=== PATIENT | male | born 1950 | race Caucasian/White ===

== ENCOUNTER → 2020-03-03 09:56 | Outpatient (CLI) | payer MEDICARE, BC, SELFPAY ==
[2020-03-05 04:09] LABS: COVID19 Sendout Not Detected (Not Detect)
== END ==
PROVIDERS: Visit Provider Physician Assistant
DX: Z11.59 Encounter for screening for other viral diseases (principal)
CPT/HCPCS: 87635

== ENCOUNTER → 2020-07-22 09:53 | Outpatient (CLI) | payer MEDICARE, BC, SELFPAY ==
[2020-07-22 12:23] LABS: COVID19 -Nasal RAPID Negative (Negative)
== END ==
PROVIDERS: Visit Provider Specialist
DX: Z01.812 Encounter for preprocedural laboratory examination (principal); Z20.828 Contact with and (suspected) exposure to other viral communicable diseases
CPT/HCPCS: 87635; C9803

== ENCOUNTER 2020-07-25 09:50 | Day surgery (SDC) | payer MEDICARE, BC, SELFPAY ==
[2020-07-21 13:43] VITALS: BMI 25.0
[2020-07-25] VITALS (7 sets, daily range): BP systolic 110–132; BP diastolic 60–74; PULSE 49–64; RESP 10–19; TEMP 36.2–36.4; O2SAT 94–98; BMI 24.0
[2020-07-25] MEDS: LACTATED RINGERS 1,000 ML 42 ML IV ×2 (10:26→13:56)
--- NOTE | 2020-07-25 12:10 | PM.PREOP ---
Pre-operative Note COVID-19 COVID-19 status: Negative Result date/Date tested (Pos, Neg/Pending): 07/22/20 Interval Note History & Physical reviewed/Exam performed by Physician: Yes Changes to H&P: No
[2020-07-25] MEDS: CEFAZOLIN 2 GM/100 ML FROZ.PIGGY IV (12:40)
--- NOTE | 2020-07-25 13:02 | SUR.OPER ---
Supine on padded OR bed, head on pillow, arms secured on padded arm boards at <90 degrees abduction, legs uncrossed, safety belt at thigh, tape over blanket over lower legs.
[2020-07-25] MEDS: BUPIVACAINE 0.5% (PF) VIAL 30 ML INJ (13:09)
[2020-07-25] MEDS: OXYCODONE IR 5 MG TABLET PO (14:39)
--- NOTE | 2020-07-25 14:46 | PM.OP.1 ---
Operative Date/Time/Diagnoses Date of procedure: 07/25/20 Time of procedure: 14:20 Pre-op diagnosis: Umbilical hernia and left inguinal hernia. Both are reducible without evidence of incarceration or strangulation. Post-op diagnosis: same Procedure & Clinicians Procedure: Primary repair of umbilical hernia. Repair of left inguinal hernia with plug and patch technique. Same procedure as scheduled: Yes Indications: Symptomatic hernias at the umbilicus and left groin Surgeon: Tucker Morrison Click Yes if Unassisted: Yes Anesthesia Type: General Operative Notes Findings: Direct hernia in the left groin. Small defect at the umbilicus. Closure Type: primary Specimen(s): none sent Prosthetic devices, grafts, tissues, transplants, or devices: Mesh used in the left groin small plug and patch Estimated Blood Loss (mL): 10 Blood products transfused: none Procedure in detail: Patient is placed supine on the operating room table and underwent general LMA anesthesia. He was prepped and draped in the usual fashion. Curvilinear incision was made beneath the umbilicus and carried down level of fascia. The hernia sac was entered and the contents reduced. It consisted of preperitoneal fat. Fascial edge was cleared. This was a very small defect about a cm in size. I closed it with a single interrupted 0 Ethibond suture. The umbilicus was tacked down to the fascia using an interrupted 3-0 Vicryl the subQ was closed with interrupted 3 0 Vicryl and skin was closed with interrupted 4-0 Vicryl subcuticular stitches and Steri-Strips. Attention was turned the left groin. The patient was placed supine on the operating room table and underwent general LMA anesthesia. He was prepped and draped in the usual fashion. A transverse incision was made overlying the left internal ring and carried down to the level of the external oblique. The external oblique was opened parallel with its fibers through the external ring. And nerve in the region had to be sacrificed due to its location and the expectation that mesh would be implanted directly in approximation to it. The cut and was burred and muscle. The cord structures were elevated. The cremaster was opened proximally and search made for an indirect sac. None was found but there was a direct hernia immediately adjacent to the cord structures. The floor was opened and the preperitoneal fat reduced. A small plug was placed in the defect and tacked into place with interrupted Ethibond suture. The floor was closed over this plug.. The floor was examined and was found to be otherwise fairly intact.. A patch was placed across the floor and tacked at the pubic tubercle, the posterior lamella of the anterior rectus sheath, the ilioinguinal ligament, and superior lateral to the cord. The opening was modified as necessary to prevent tight constriction of the cord. Sutures of 0 Ethibond were used to secure the mesh. The external oblique was closed with a running 3 0 Vicryl. The subcu was closed with interrupted 3 0 Vicryl. The skin was closed with a running 4 0 Vicryl subcuticular stitch and Steri-Strips. Dressing was applied, the patient was awakened, and the patient was taken to the recovery area in good condition. Complications: none Post-operative Condition: stable Disposition: PACU Plan for aftercare: Follow-up in the office
== END 2020-07-25 15:17 | disposition home or self-care (01) ==
PROVIDERS: Referring Provider Specialist; Visit Provider Specialist
PROC: (CPT 49505; principal; 2020-07-25 11:15)
DX: K42.9 Umbilical hernia without obstruction or gangrene (principal); K40.90 Unilateral inguinal hernia, without obstruction or gangrene, not specified as recurrent; J45.909 Unspecified asthma, uncomplicated
CPT/HCPCS: 49505; 49585; C1781; J0690; J1100; J1885; J2405; J2704; J3010

== ENCOUNTER → 2020-08-30 08:50 | Outpatient (CLI) | payer MEDICARE, BC, SELFPAY ==
[2020-08-30] MEDS: COVID-19 VACC #1, MRNA(MOD) 100 MCG/0.5 ML VIAL IM (09:01)
== END ==
PROVIDERS: Visit Provider Internal Medicine
DX: Z23 Encounter for immunization (principal)
CPT/HCPCS: 0011A; 91301

== ENCOUNTER → 2020-09-19 09:57 | Outpatient (CLI) | payer MEDICARE, BC, SELFPAY ==
[2020-09-19 11:05] LABS: COVID19 -Nasal RAPID Negative (Negative)
== END ==
PROVIDERS: Visit Provider Specialist
DX: Z20.822 Contact with and (suspected) exposure to COVID-19 (principal)
CPT/HCPCS: 87635; C9803

== ENCOUNTER 2020-09-20 07:54 | Day surgery (SDC) | payer MEDICARE, BC, SELFPAY ==
--- NOTE | 2020-09-20 | PATH_ITS ---
[facility] Accession Number: [id number] . 01 Material submitted: . PART A: colon - 20CM COLON POLYP PART B: colon - CECUM POLYP PART C: 60CM COLON POLYP PART D: colon - 35CM COLON POLYP PART E: colon - 30CM COLON POLYP . 01 Clinical history: . SDC . 02 Diagnosis: A. Colon Polyp At 20 CM, Biopsy: Hyperplastic polyp. . B. Cecal Polyp, Biopsy: Colonic mucosa with no diagnostic abnormality, consistent with polypoid redundancy. Negative for serrated lesion, dysplasia and malignancy. Additional step-sections examined. . C. Colon Polyp At 60 CM, Biopsy: Colonic mucosa with focal mucosal hyperplasia. Negative for dysplasia and malignancy. Additional step-sections examined. . D. Colon Polyp At 35 CM, Biopsy: Tubular adenoma. . E. Colon Polyp At 30 CM, Biopsy: Colonic mucosa with prominent benign lymphoid aggregate. Negative for serrated lesion, dysplasia and malignancy. [facility] 09/23/2020 1137 Local . 02 Electronically signed: . Joel Gutiérrez MD, PhD, Pathologist NPI- [id number] . 01 Gross description: . Part A: 20CM COLON POLYP: Received in formalin are 2 fragment(s) of sol, soft tissue measuring 0.2 x 0.2 x 0.2 cm to 0.5 x 0.3 x 0.2 cm submitted entirely in 1 cassette(s) Part B: CECUM POLYP: Received in formalin are 2 fragment(s) of sol, soft tissue measuring 0.2 x 0.2 x 0.2 cm to 0.3 x 0.3 x 0.2 cm submitted entirely in 1 cassette(s) Part C: 60CM COLON POLYP: Received in formalin are multiple fragment(s) of sol, soft tissue measuring 0.1 x 0.1 x 0.1 cm to 0.3 x 0.3 x 0.2 cm submitted entirely in 1 cassette(s) Part D: 35CM COLON POLYP: Received in formalin is 1 fragment(s) of sol, soft tissue measuring 0.3 x 0.3 x 0.2 cm submitted entirely in 1 cassette(s) Part E: 30CM COLON POLYP: Received in formalin are 3 fragment(s) of sol, soft tissue measuring 0.2 x 0.2 x 0.2 cm to 0.8 x 0.2 x 0.2 cm submitted entirely in 1 cassette(s) /CHARLI 09/21/2020 0037 Local . 02 Pathologist provided ICD-10: D12.6, K63.5 . 02 CPT . 716046, 228537, 876016, [id number], [id number] Performed at: 01 [facility] [address] [place] [address], [place], [place] [id number] MD Ralph Ocampo MD Phone: [phone] Performed at: [address] [facility] [address] [place], [place] [id number] MD Kati Gordon MD Phone: [phone]
[2020-09-20] MEDS: LACTATED RINGERS 1,000 ML 100 ML IV (08:39)
[2020-09-20 08:40] VITALS: BP 122/69; PULSE 55; RESP 16; TEMP 36.5; O2SAT 99; BMI 24.0
--- NOTE | 2020-09-20 09:07 | PM.PREOP ---
Pre-operative Note COVID-19 COVID-19 status: Negative Result date/Date tested (Pos, Neg/Pending): 09/19/20 Interval Note History & Physical reviewed/Exam performed by Physician: Yes Changes to H&P: No ASA Class (for procedural sedation): II
[2020-09-20] MEDS: MIDAZOLAM 5 MG/5 ML VIAL IV (09:52)
[2020-09-20] MEDS: fentaNYL 250 MCG/5 ML INJ IV (09:52)
--- NOTE | 2020-09-20 10:18 | PM.OP.ENDO ---
Operative Date/Time/Diagnoses Date of procedure: 09/20/20 Time of procedure: 10:18 Pre-op diagnosis: Screening exam. Post-op diagnosis: same (Multiple polyps. Colonic diverticulosis. Scarring at the anus with internal hemorrhoids small) Procedure & Clinicians Study performed: Colonoscopy with cold biopsy Same procedure as scheduled: Yes Indications: Screening. Last exam 9 or 10 years ago. He has a history of polyps. Surgeon: Tucker Morrison Procedure Notes SCOAP/Timeout: Performed Procedure in detail: The patient was placed in the left lateral decubitus position and underwent IV sedation directed by the surgeon consisting of fentanyl and Versed. Digital exam was remarkable for a very tight anal verge. No palpable mass. I could feel is prostate well.. The scope was inserted and advanced through the rectum into the sigmoid, descending, transverse, and ascending colon. Diverticulosis was noted and there was a polyp at 20 cm which I biopsied and removed.. The cecum was reached identified by the ileocecal valve and the appendiceal opening. There was a tiny polyp in the cecum which were biopsied and removed. The scope was gradually brought out. Additional Polyps were found at 60 cm from the anal verge 35 cm from the anal verge and 30 cm from the anal verge. These were all small and removed with biopsy forceps.. The scope ultimately was retroflexed in the rectum. The appearance was remarkable for scarring on old hemorrhoidal disease. No active ulceration.. The scope was removed and the patient tolerated the procedure well. Prep was adequate. Scope withdrawal time: 9 minutes(15 total) Sedation minutes: 31 Findings: diverticulosis and polyp (Multiple small polyps) Specimen(s): other (Polyps) Complications: none Post-procedure Recommendations: Colonscopy in 5 years Follow up: as needed Disposition: PACU
[2020-09-20 10:22] VITALS: BP 122/62; PULSE 52; RESP 12; TEMP 37.2; O2SAT 97
[2020-09-20 10:27] VITALS: BP 112/67; PULSE 53; RESP 12; O2SAT 97
[2020-09-20 10:32] VITALS: BP 120/64; PULSE 50; RESP 11; O2SAT 98
[2020-09-20 10:37] VITALS: BP 116/75; PULSE 60; RESP 14; O2SAT 98
[2020-09-20 10:40] VITALS: BP 116/81; PULSE 55; RESP 12; TEMP 37; O2SAT 99
== END 2020-09-20 10:55 | disposition home or self-care (01) ==
PROVIDERS: Referring Provider Specialist; Visit Provider Specialist
PROC: 0DJD8ZZ Inspection of Lower Intestinal Tract, Via Natural or Artificial Opening Endoscopic (ICD-10-PCS; CPT 45378; principal; 2020-09-20 09:15)
DX: Z12.11 Encounter for screening for malignant neoplasm of colon (principal); Z86.010 Personal history of colon polyps; J45.909 Unspecified asthma, uncomplicated; E78.5 Hyperlipidemia, unspecified; K57.30 Diverticulosis of large intestine without perforation or abscess without bleeding; K64.8 Other hemorrhoids; D12.6 Benign neoplasm of colon, unspecified
CPT/HCPCS: 45380; 99152; 99153; J2250; J3010

== ENCOUNTER → 2020-09-27 08:58 | Outpatient (CLI) | payer MEDICARE, BC, SELFPAY ==
[2020-09-27] MEDS: COVID-19 VACC #2, MRNA(MOD) 100 MCG/0.5 ML VIAL IM (09:01)
== END ==
PROVIDERS: Visit Provider Internal Medicine
DX: Z23 Encounter for immunization (principal)
CPT/HCPCS: 0012A; 91301

== ENCOUNTER → 2020-12-01 11:24 | Outpatient (CLI) | payer MEDICARE, BC, SELFPAY ==
[2020-12-01 11:58] LABS: Add Manual Diff / Slide Review NO; Basophils Absolute Auto 100 /uL (0-100); Basophils Percent Auto 1.3 % (0-2); Eosinophils Absolute Auto 200 /uL (0-450); Eosinophils Percent Auto 3.1 % (2-4); Hematocrit 39.1 % (41-53); Hemoglobin 13.6 g/dL (13.5-17.5); Lymphocytes Absolute Auto 2300 /uL (1100-4500); Lymphocytes Percent Auto 41.9 % (25-40); Mean Corpuscular HGB Conc 34.8 % (30-36); Mean Corpuscular Hemoglobin 32.1 PG (26-34); Mean Corpuscular Volume 92.4 fL (80-100); Monocytes Absolute Auto 400 /uL (0-900); Monocytes Percent Auto 7.7 % (3-14); Neutrophils Absolute Auto 2500 /uL (1500-7000); Platelet Count 189 X10^3/uL (150-400); Red Blood Cell Count 4.23 X10^6/uL (4.5-5.9); Red Cell Distribution Width 12.9 % (11.6-14.8); White Blood Cell Count 5.4 X10^3/uL (4.5-11.0)
[2020-12-01 13:43] LABS: BUN Creatinine Ratio 22.1 (6-22); Blood Urea Nitrogen 17 mg/dL (9-20); Calcium 9.4 mg/dL (8.4-10.2); Carbon Dioxide 27 mmol/L (22-32); Chloride 103 mmol/L (98-107); Estimated Glomerular Filt Rate > 60.0 mL/min (>60); Glucose 94 mg/dL (80-110); HEMOLYSIS < 15 (0-50); Potassium 3.9 mmol/L (3.4-5.1); Sodium 136 mmol/L (137-145)
== END ==
PROVIDERS: Referring Provider Orthopaedic Surgery Adult Reconstructive Orthopaedic Surgery; Visit Provider Orthopaedic Surgery Adult Reconstructive Orthopaedic Surgery
DX: Z01.818 Encounter for other preprocedural examination (principal); R73.9 Hyperglycemia, unspecified; Z01.812 Encounter for preprocedural laboratory examination; R22.2 Localized swelling, mass and lump, trunk
CPT/HCPCS: 21933; 36415; 80048; 83036; 85025; 93005

== ENCOUNTER → 2021-01-16 10:07 | Outpatient (CLI) | payer MEDICARE, BC, SELFPAY ==
[2021-01-16 12:01] LABS: COVID19 -Nasal RAPID Negative (Negative)
== END ==
PROVIDERS: PCP Family Medicine; Visit Provider Physician Assistant
DX: Z01.812 Encounter for preprocedural laboratory examination (principal); Z20.822 Contact with and (suspected) exposure to COVID-19
CPT/HCPCS: 87635

== ENCOUNTER → 2021-01-16 13:13 | Outpatient (CLI) | payer MEDICARE, BC, SELFPAY ==
--- NOTE | 2021-01-20 13:15 | PM.PFT.1 ---
Pulmonary Function Test Referral & Results Date Patient Seen: 01/16/21 Requesting provider: Josh Espinosa Results: The spirometry demonstrates an FVC of 4.48 L which is 111% of predicted. The FEV1 was measured at 2.40 L which is 82% of predicted. The FEV1/FVC ratio was 54 which is 73% of predicted. Following the administration of bronchodilator there was a 19% improvement in FEV1 and a 65% improvement in FEF 25-75%. Lung volumes show an SVC of 4.88 L which is 115% of predicted. The diffusing capacity was measured at 28.82 which is 97% of predicted. The maximum voluntary ventilation was minimally reduced Interpretation: This study demonstrates perhaps mild obstructive lung disease based on slight reduction FEV1 and FEV1/FVC ratio. There is evidence of benefit following bronchodilator as noted above in both FEV1 and FEF 25-75% Lung volumes are normal Diffusing capacity is normal Clinical correlation suggested
== END ==
PROVIDERS: PCP Family Medicine; Referring Provider Family Medicine; Visit Provider Family Medicine
DX: J45.40 Moderate persistent asthma, uncomplicated (principal); Z87.891 Personal history of nicotine dependence; Z01.812 Encounter for preprocedural laboratory examination; Z20.822 Contact with and (suspected) exposure to COVID-19
CPT/HCPCS: 87635; 94060; 94726; 94729; C9803

== ENCOUNTER 2021-01-18 07:35 | Day surgery (SDC) | payer MEDICARE, BC, SELFPAY ==
[2021-01-12 09:58] VITALS: BMI 26.2
[2021-01-18] VITALS (11 sets, daily range): BP systolic 103–135; BP diastolic 61–79; PULSE 48–59; RESP 13–20; TEMP 36.1–36.9; O2SAT 94–99; BMI 24.8; BMI 25.2
--- NOTE | 2021-01-18 07:00 | DI.RAD.S_ITS ---
PROCEDURE: XR KNEE LT 1TO2V INDICATIONS: left TKA TECHNIQUE: 2 view(s) of the knee acquired. [facility] [place], XR KNEE 4+ VIEWS LEFT, 11/07/2020, 15:57. FINDINGS: Bones: Patient is status post knee joint arthroplasty. Hardware components are in expected positions. Visualized bony structures are intact. Soft tissues: Overlying postoperative changes are noted. IMPRESSION: Expected appearance of the left knee total arthroplasty. Dictated by: Shaun Fernández M.D. on 01/18/2021 at 11:24 Approved by: Shaun Fernández M.D. on 01/18/2021 at 11:25
[2021-01-18] MEDS: LACTATED RINGERS 1,000 ML 42 ML IV ×2 (08:19→10:21)
[2021-01-18] MEDS: PREGABALIN 75 MG CAPSULE PO (08:26)
[2021-01-18] MEDS: CELECOXIB 200 MG CAPSULE PO (08:26)
[2021-01-18] MEDS: ACETAMINOPHEN 325 MG TABLET 975 MG PO (08:26)
--- NOTE | 2021-01-18 08:38 | PM.PREOP ---
Pre-operative Note COVID-19 COVID-19 status: Negative Result date/Date tested (Pos, Neg/Pending): 01/16/21 Interval Note History & Physical reviewed/Exam performed by Physician: Yes Changes to H&P: No H&P completed within 30 days and has changed as indicated here:: Plan for L TKA
[2021-01-18] MEDS: CEFAZOLIN 1 GM VIAL 2 GM IV ×2 (08:55→17:07)
[2021-01-18] MEDS: TRANEXAMIC ACID 1,000 MG VIAL 2000 MG INJ ×2 (09:05→10:44)
--- NOTE | 2021-01-18 09:14 | SUR.OPER ---
Supine on padded OR bed. Pillow under head, arms secured on padded armboards <90 degree abduction. Safety belt across torso. Non-operative leg secured with tape over blanket over lower leg. Operative leg under control of surgeon. Foam padded brace at thigh of operative leg.
[2021-01-18] MEDS: SODIUM CHLORIDE IRRIG SOLUTION 250 ML, POVIDONE-IODINE SPONGE STICKS 1 APPLIC IRR (09:20)
[2021-01-18] MEDS: ROPIVACAINE 0.5% PF 5 MG/ML 20ML VIAL 60 ML INJ (09:21)
[2021-01-18] MEDS: MORPHINE 4 MG/ML INJ INJ (09:21)
[2021-01-18] MEDS: KETOROLAC 30 MG/ML VIAL IV (09:22)
--- NOTE | 2021-01-18 10:50 | PM.OP.1 ---
Operative Date/Time/Diagnoses Date of procedure: 01/18/21 Time of procedure: 10:50 Pre-op diagnosis: left knee OA Post-op diagnosis: same Procedure & Clinicians Procedure: Left total knee arthroplasty Same procedure as scheduled: Yes Indications: Left knee osteoarthritis resistant to further conservative measures. Surgeon: Elvin Shipley [employer] Extension Worker: Jeremy Knowles Click Yes if Unassisted: Yes Anesthesia Type: General and Spinal Operative Notes Findings: Hemosiderin staining of the synovium. Advanced osteoarthritis seen throughout the knee. Gmmp-gt-gdod articulation. Closure Type: primary Specimen(s): none sent Prosthetic devices, grafts, tissues, transplants, or devices: Guzmán and nephew Journey 2 CR size 6, left CR femur Journey size 6, left tibial base plate Size 5-6 left 9 mm journey 2 deep dish polyethylene 35 mm oval Dominique 2 patellar Estimated Blood Loss (mL): 50 Tourniquet time (min): 52 Procedure in detail: Patient was met in the preoperative holding area where the site and side of surgery were marked by MD informed consent had been reviewed signed in clinic was also reviewed the preoperative holding area all last minute questions were answered. Patient was then brought back in the operating room where he received a spinal anesthetic. He was then transferred on the operating table. He was placed supine induced under general anesthesia. A nonsterile tourniquet was then placed on the left thigh and the left lower extremity then prepped and draped in normal sterile fashion. A surgical time-out was performed verifying site and side of surgery as well as the name of the patient. An Esmarch was used to exsanguinate the left lower extremity and the tourniquet was inflated 250 mmHg. A longitudinal incision over the anterior aspect the knee was made with a 10. Blade and a 10. Blade was then used to elevate medial lateral flaps. The medial parapatellar arthrotomy was then marked and a new 10. Blade was then used to make this arthrotomy. Hoffa's fat pad was then removed and medial peel was then performed. Next the lateral meniscus was removed and Que's line was marked as well as entry site for the femoral drill and the tibial drill respectively. The remnant of the ACL was also removed. Drill was then used to enter the femur and tibia sequentially. Intramedullary padmini was then placed inside the femur and the distal femoral cutting jig was then placed and cut in through the neutral slot. Intramedullary padmini was then removed from the femur placed inside the tibia and the out rn examiner was then used to pin the tibial jig in appropriate alignment. Drop arc was used to confirm alignment. Tibial cut was then made and the medial meniscus was removed with the tibial cut. PCL was preserved. This point the knee was brought into full extension a 9 mm extension block fit the extension space well and was balance medial and lateral. The knee was then brought into flexion the pins were then removed and the gap flame cutting supervisor was placed. This was then drilled for the cutting block. These drill holes were compared to [place] line which showed external rotation. The Sizer was then sized to size 6. This was then pinned into place and the 5 in 1 cutting block cuts were then made sequentially. Cutting block was then removed bony fragments were then removed from the knee as well. A size 6 CR femur was then malleted into place and the cut for the CR femur the was then made. The gait was then placed a size 6 tibial base plate with a 9 mm thick CR was then placed in the knee was brought through range of motion. Excellent tracking and stability. Tibial base plate was then marked using floating technique. The knee was then brought into partial flexion and the patella was then cut using freehand technique sized to size 35 mm patellar button and drilled. A 35 mm trial button was then placed the knee was brought through range of motion with excellent patellar tracking. The trial components were then removed the tibial base plate was then returned to the tibia and pinned into place and the keel was then drilled and punched. Bone fractures then placed inside the tibial canal and punched again. Local anesthetic was infiltrated in the posterior aspect of the knee as well as the periarticular soft tissues. Pulse lavage was then used to clean the cut surface of the tibia femur and patella. The surfaces were then dried. Cement was mixed cement was then finger packed into the keel hole as well as the cut surface of the tibia and undersurface of the tibial base plate this was then malleted into place excess cement was removed. Cement was then finger packed on the cut surface of the femur with exception the posterior condylar cut was plate cement was placed on the feet of the femoral component this was then malleted into place excess cement was removed the was then brought into full extension with a 9 mm thick CR trial the ankle was held internal rotation. Cement was then packed on the cut surface of the patella and between pegs on the patellar button and the patellar button was then clamped into place excess cement was removed and cement was then removed. Betadine solution was then placed into the wound and the tourniquet was let down at 52 minutes minutes of time. Stem was allowed to fully cure. Betadine solution was then lavaged with copious normal saline. Knee was brought through range of motion again and a 9 mm thick deep dish polyethylene was selected. The trial component was then removed look for any excess cement none were was found. A 9 mm thick deep dish polyethylene was then placed into the locking mechanism the tibial base plate and confirmed the medial lateral tabs were well gauge. The knee was then brought into extension and a medial parapatellar arthrotomy was closed using 1. Vicryl in interrupted fashion followed by running Quill suture followed by 2 Vicryl interrupted fashion the subcutaneous layer followed by running 3-0 Stratafix followed by Dermabond and Aquacel dressing. Complications: none Post-operative Condition: stable Disposition: PACU Plan for aftercare: 24 hours post-op abx, ASA 81mg BID for 6 weeks for DVT prophyalxis, WBAT LLE
[2021-01-18] MEDS: LACTATED RINGERS 1,000 ML 100 ML IV ×2 (13:37→22:25)
[2021-01-18] MEDS: IBUPROFEN 400 MG TABLET PO ×3 (13:42→20:51)
[2021-01-18] MEDS: ACETAMINOPHEN 325 MG TABLET 650 MG PO ×2 (14:45→20:49)
--- NOTE | 2021-01-18 14:50 | PT.IIE ---
Current Diagnoses Unilateral primary osteoarthritis, left knee (01/18/21) Surgery Performed Operation Date: 01/18/21 08:45 Actual Procedures p Total Knee Arthroplasty(Left) - Elivn Shipley MD Surgical History (Last Updated 01/12/21 @ 10:10 by Ronit Mendez RN) H/O repair of rotator cuff History of colonoscopy with polypectomy History of surgery (11/2020) History of vasectomy Hx of hernia repair (07/2020) Hx of knee surgery Hx of tonsillectomy Medical History (Last Updated 01/12/21 @ 10:13 by Ronit Mendez RN) Asthma Diverticulosis Easy bruisability HLD (hyperlipidemia) Impaired hearing Osteoarthritis Psoriasis Physical Therapy Inpatient Evaluation/Re-Eval M1 PT/OT-IP Prior Functional Status Start: 01/18/21 16:48 Freq: NEEDED Status: Active Protocol: Document 01/18/21 14:50 AB (Rec: 01/18/21 17:00 AB [id number]) Medical Review Prior Functional Status Medical History Reviewed Yes Communication able to make needs known Mobility and Gait pt stated that he is independent with all mobilities and ambulation without AD Social History Household Members spouse Living Arrangements House Number of Floors (Floors) One Floor Number of Stairs To Enter/Railing? 3 steps without AD Home Environment High Toilet,Walk in Shower Home Equipment Front Wheel Walker,Hand Held Shower M2 PT-IP Current Condition Start: 01/18/21 16:48 Freq: NEEDED Status: Active Protocol: Document 01/18/21 14:50 AB (Rec: 01/18/21 17:00 AB [id number]) Physical Therapy Current Condition Current Condition Evaluation Date 01/18/21 Treatment Diagnosis s/p L TKA; difficulty in walking Onset Date 01/18/21 Weight Bearing Status Weight Bearing Status Weight Bear as Tolerated Allowed Weight Bearing Amount (enter % LLE WBAT or #) (%) M3 PT-IP Subjective Start: 01/18/21 16:48 Freq: NEEDED Status: Active Protocol: Document 01/18/21 14:50 AB (Rec: 01/18/21 17:00 AB [id number]) Subjective Physical Therapy Visit Type Type Initial Evaluation Visit Start Time 14:50 Visit Stop Time 15:35 Total Visit Minutes 45 Number of TRUSS BUILDER Visits 0 Physical Therapy Visit Comments Patient Comments pt is agreeable to do PT Therapy Pain Assessment Pain Present Pain Present Denied Pain M4 PT-IP Mobility and Gait Start: 01/18/21 16:48 Freq: NEEDED Status: Active Protocol: Document 01/18/21 14:50 AB (Rec: 01/18/21 17:00 AB [id number]) PT-Bed Mobility Assessment Supine to Sit Supine to Sit Standby Assistance PT-Transfer Assessment Sit to and From Stand Sit to and from Stand Minimal Assistance,1 Person Assistance,Use of Upper Extremities Equipment Transfer Assistive Device Gait Belt,Front Wheeled Walker Orthotic/Prosthetic Devices or Brace: No Transfers Transfer Destination Chair Transfer Technique ambulated using FWW Transfer Ability Level of Assist Minimal Assistance,1 Person Assistance,Use of Upper Extremities Comments Mobility Comments completed heel slides prior to mobility. BP in supine: 127/ 71. pt agreed to get up but stated that his buttocks are still numb and RLE is slightly numb but able to move LE without difficulty. completed sit to supine SBA. pt was able to sit on EOB SBA. c/o initial dizziness but dissipated. BP: 125/74. pt completed sit to stand min A. ambulated in room using FWW min A and cues for safety. presents with unsteady gait but without LOB. pt agreed to sit on the chair. positioned on the chair. call light and table placed within reach. Gait Assessment Gait Gait Assistance Required: Minimum Assistance Distance (Feet) 12 Able to Maintain Weight Bearing Status Yes During Gait Assistive Devices Assistive Device Gait Belt,Front Wheeled Walker Orthotic/Prosthetic Devices or Brace: No Gait Deviations General Gait Pattern Antalgic,Decreased Stride Length,Decreased Feet Clearance Factors Limiting Gait Function Factors Limiting Gait Function Decreased Activity Tolerance, Decreased Sensation,Decreased Strength,Limited Range of Motion,Pain,Poor Balance, Respiratory Distress PT-Balance Assessment Sitting Balance and Reactions Static Sitting Balance Ability Good Dynamic Sitting Balance Ability Good Standing Balance and Reactions Static Standing Balance Ability Fair Dynamic Standing Balance Ability Fair Device Used FWW M5 PT-IP Objective Assessments Start: 01/18/21 16:48 Freq: NEEDED Status: Active Protocol: Document 01/18/21 14:50 AB (Rec: 01/18/21 17:00 AB [id number]) Orientation Orientation/Cognition Level of Alertness Alert Orientation Name,Age,Birthday,Month,Date, Year,Day of Week,Place, Situation Language Function Ability No Deficits Noted Safety Awareness Understands Safety Issues Memory Description No Deficits Noted Gross Range of Motion Lower Extremity ROM Assessment Within Functional Limits Impairments L knee flexion: ~100 deg L knee extension: ~ 5-10 deg less to 0 Strength Lower Extremity Strength Assessment Left Impaired Hip 4+/5 Knee 4-/5 Sensation Assessment Sensation Gross Sensation Right LE Impaired Sensation Description Numbness Comments Sensation Comments also c/o bilateral buttocks numbness Muscle Tone Muscle Tone WNL Yes M6 PT-IP Treatment Start: 01/18/21 16:48 Freq: NEEDED Status: Active Protocol: Document 01/18/21 14:50 AB (Rec: 01/18/21 17:00 AB [id number]) Physical Therapy Treatment Exercises Exercises Heel Slides Education Education Provided Precautions,Weight Bearing Status,Post-Op Packet,Safety Other Treatments Other Treatment Performed reviewed HEP with pt M7 PT-IP Assessment and Plan Start: 01/18/21 16:48 Freq: NEEDED Status: Active Protocol: Document 01/18/21 14:50 AB (Rec: 01/18/21 17:00 AB [id number]) PT Summary Assessment and Plan Potential Rehabilitation Potential Good Status of Condition at Evaluation Evolving Summary Impairments Pain,ROM,Strength,Balance, Coordination,Sensation,Tone, Bed Mobility,Transfers,Gait, Activity Tolerance Assessment Summary pt requiring min A with mobility but just had L TKA this morning and will likely improve during hospital stay. caregiver training set up for tomorrow at 10 am. will also conduct stair climbing training prior to d/c. Goals Bed Mobility Goal Independent Transfer Goal Independent,Front Wheeled Walker Gait Goal Independent,Front Wheel Walker Gait Distance 200 Other Goals up/down 3 steps without rails/ use of SPC/VERMIN EXTERMINATOR CGA Days to Meet Goals 3 Frequency of Treatment Frequency Of Treatment Twice a Day Treatment Plan Physical Therapy Treatment Plan Bed Mobility Training,Transfer Training,Gait Training, Therapeutic Exercise,Balance Retraining,Post Op Education, Discharge Planning,Hot or Cold Pack,Neuromuscular Re-ed, Coordination Retraining,Manual Therapy Precautions Other Precautions LLE: WBAT Recommendations To Nursing Amount of Assist Needed 1 Person Assist Discharge Recommendations PT Discharge Recommendations Home with Assistance, Outpatient PT Transportation Needs at Discharge Private Vehicle
[2021-01-18] MEDS: ASPIRIN EC 81 MG TABLET PO (20:48)
[2021-01-18] MEDS: ATORVASTATIN 20 MG TABLET 10 MG PO (20:49)
[2021-01-18] MEDS: DOCUSATE 100 MG CAPSULE PO (20:49)
--- NOTE | 2021-01-18 23:42 | PC.NURSE ---
pt was unable to urinate, bladder scan 895cc. inserted in and out cath, but felt resistance. removed the cath, pt able to void afterwards. [id number]. pain controlled with sched tyenol and advil.
[2021-01-18] MEDS: OXYCODONE IR 10 MG TABLET PO (23:47)
[2021-01-19] MEDS: IBUPROFEN 400 MG TABLET PO ×3 (01:01→09:34)
[2021-01-19] MEDS: CEFAZOLIN 1 GM VIAL 2 GM IV (01:02)
[2021-01-19 05:20] VITALS: BP 124/71; PULSE 58; RESP 18; TEMP 37.1; O2SAT 97
[2021-01-19] MEDS: OXYCODONE IR 5 MG TABLET PO (05:20)
[2021-01-19 05:47] LABS: Hematocrit 34.3 % (41-53)
[2021-01-19] MEDS: OXYCODONE/ACETAMINOPHEN 5/325 TABLET 1 TAB PO (07:03)
[2021-01-19 08:10] VITALS: BP 129/68; PULSE 59; RESP 16; TEMP 36.8; O2SAT 99
--- NOTE | 2021-01-19 08:48 | PM.DS.1 ---
History of Present Illness History of Present Illness Date Patient Seen: 01/19/21 Time Patient Seen: 08:48 Chief complaint: Left Total Knee Arthroplasty Narrative: Pain [id number]. Denies fever or chills. No nausea or vomiting. Patient has is home and available to assist him. Discharge Providers Provider Discharge Date: 01/19/21 Primary care physician: Josh Espinosa MD Consults: 01/18/21 07:00 Consult to Anesthesiology Routine Comment: Consulting Provider: Anesthesiologist Reason for consultation: Regional block for post operative pain control 01/18/21 11:45 Consult to Discharge Planning Routine Comment: Consult to Physical Therapy Evaluate & Treat Comment: Physician Instructions: postop TKA protocol Consult to Respiratory Therapy Evaluate & Treat Comment: Physician Instructions: Evaluate and treat Discharge provider: Stephan Mcfadden PA-C Summary Hospital Course Discharge Diagnosis: left knee OA Hospital Course: Left total knee arthroplasty Same procedure as scheduled: Yes Indications: Left knee osteoarthritis resistant to further conservative measures. Surgeon: Elvin Shipley Supervisor Air Conditioning Installer: Jeremy Knowles Click Yes if Unassisted: Yes Anesthesia Type: General and Spinal Operative Notes Findings: Hemosiderin staining of the synovium. Advanced osteoarthritis seen throughout the knee. Jysx-eh-ssmn articulation. Closure Type: primary Specimen(s): none sent Prosthetic devices, grafts, tissues, transplants, or devices: Guzmán and nephew Journey 2 CR size 6, left CR femur Journey size 6, left tibial base plate Size 5-6 left 9 mm journey 2 deep dish polyethylene 35 mm oval Dominique 2 patellar Estimated Blood Loss (mL): 50 Tourniquet time (min): 52 Patient admitted to the hospital for left total knee arthroplasty. Patient consented to the same. Patient taken operating room yesterday. Patient back in his room recovering well as in stable condition. Patient will be discharged home today after physical therapy. Status at Discharge Cognitive/behavioral status at discharge: at baseline, oriented Functional status at discharge: uses cane/walker Overall status at discharge: patient is progressing back to baseline Time Spent with Patient Time spent: Less than 30 minutes Exam Vital Signs (past 8 hours): - 01/19/21 05:20 Temperature 98.8 F Pulse Rate 58 L Respiratory Rate 18 Blood Pressure 124/71 Pulse Oximetry 97 Oxygen Delivery Method Room Air Oxygen Flow Rate 0 Narrative Exam Narrative: 70-year-old male resting comfortably in bed in no apparent distress. Left knee dressing is Clean, dry, intact.. Motor functions intact distal bilateral lower extremities. Sensation grossly intact distal bilateral lower extremities. Objective Labs Result Diagrams: 01/19/21 05:22 Labs: Laboratory Results - last 24 hr 01/19/21 05:22 Hgb 12.0 L Hct 34.3 L COUNT INCLUDES THE [facility] Medical History Asthma Diverticulosis Easy bruisability HLD (hyperlipidemia) Impaired hearing Osteoarthritis Psoriasis Surgical History H/O repair of rotator cuff History of colonoscopy with polypectomy History of surgery (11/2020) History of vasectomy Hx of hernia repair (07/2020) Hx of knee surgery Hx of tonsillectomy Family History Mother Stroke Social History marital status: household members: spouse occupational status: previously employed Smoking Status: Former smoker alcohol intake: current substance use type: does not use Discharge Assessment & Plan Assessment and Plan Assessment: Patient progressing as expected status post left total knee arthroplasty. Plan of Treatment: Discharge home today in stable condition. Discharge Plan Discharge Plan Patient Disposition: Home Discharge orders & Medications Discharge Orders: Discharge (Order); Ordered 01/19/21 Ordered By: Stephan Mcfadden Prescriptions: New acetaminophen 325 mg Tablet 650 mg PO TID Qty: 60 RF: 0 aspirin 81 mg Tablet,Delayed Release (Dr/Ec) 81 mg PO BID Qty: 60 RF: 0 ibuprofen 400 mg Tablet 400 mg PO Q4HR Qty: 60 RF: 0 docusate sodium [DOK] 100 mg Capsule 100 mg PO BID Qty: 20 RF: 0 oxycodone 5 mg Tablet 5 mg PO Q3HR PRN (Reason: Pain, Moderate (4-6)) Qty: 40 RF: 0 Continued Humira 40 MG/0.8 ML syringe kit 40 mg SQ SEEINSTR Qty: 0 RF: 0 finasteride [Propecia] 1 MG tablet 1 mg PO QDAY Qty: 0 RF: 0 atorvastatin 10 mg tablet 10 mg PO DAILY RF: 0 albuterol 90 mcg/actuation Aerosol 180 mcg INHALATION PRN PRN (Reason: Exercise induced asthma) RF: 0 Discontinued naproxen sodium 220 mg Tablet 220 mg PO Q12H PRN (Reason: Pain (Scale Score 1-3)) RF: 0 ibuprofen 600 mg Tablet 600 mg PO Q8H PRN (Reason: Pain (Scale Score 1-3)) RF: 0 Follow up/Referrals: Josh Espinosa MD [Primary Care Provider] - Elvin Shipley MD [Physician] - (2 weeks) Diet/Activity/Treatments Diet: Diet as Tolerated Activity: Weight-bearing as tolerated Cold/Heat Therapy: Apply ice as needed Skin/Wound/Dressing Care Report to your healthcare provider any signs of infection, such as:: chills, fever, increased pain, unusual drainage and unusual redness Dressing: Keep clean and dry Visit Report/Discharge Packet Instructions: DI for Knee Replacement Stand Alone Forms: Surgery Discharge Discharge Data Primary Care Provider: Josh Espinosa Attending Provider: Elvin Shipley Quality VTE Deep Vein Thrombosis/Pulmonary Embolism Present on Admission: No
[2021-01-19] MEDS: DOCUSATE 100 MG CAPSULE PO (09:34)
[2021-01-19] MEDS: ACETAMINOPHEN 325 MG TABLET 650 MG PO (09:34)
[2021-01-19] MEDS: ASPIRIN EC 81 MG TABLET PO (09:34)
--- NOTE | 2021-01-19 09:39 | PC.NURSE ---
Assess- Patient is alert and oriented x3. He has care companion training with physical therapy around 0945. Aquacel dressing to l.knee is cdi, cms wnl and ppx2. Patient is going to be discharged around 1045 to catch a ferry to [facility]. Pain medication is due for patient around 1030, will give prior to discharging.
--- NOTE | 2021-01-19 10:07 | PT.IPTN ---
Current Diagnoses Unilateral primary osteoarthritis, left knee (01/18/21) Surgery Performed Operation Date: 01/18/21 08:45 Actual Procedures p Total Knee Arthroplasty(Left) - Elvin Shipley MD Physical Therapy Treatment Note M2 PT-IP Current Condition Start: 01/18/21 16:48 Freq: NEEDED Status: Active Protocol: Document 01/18/21 14:50 AB (Rec: 01/18/21 17:00 AB [id number]) Physical Therapy Current Condition Current Condition Evaluation Date 01/18/21 Treatment Diagnosis s/p L TKA; difficulty in walking Onset Date 01/18/21 Weight Bearing Status Weight Bearing Status Weight Bear as Tolerated Allowed Weight Bearing Amount (enter % LLE WBAT or #) (%) M3 PT-IP Subjective Start: 01/18/21 16:48 Freq: NEEDED Status: Active Protocol: Document 01/19/21 09:44 CLB (Rec: 01/19/21 10:29 CLB [id number]) Subjective Physical Therapy Visit Type Type Treatment Note Visit Start Time 09:44 Visit Stop Time 10:07 Total Visit Minutes 23 Notes Pt's Tabitha present for CG training. Number of PROSTHETICS TECHNICIAN Visits 1 Physical Therapy Visit Comments Patient Comments pt is agreeable to do PT eager to d/c to make [address] [facility]. Therapy Pain Assessment Pain Present Pain Present Pain Reported M4 PT-IP Mobility and Gait Start: 01/18/21 16:48 Freq: NEEDED Status: Active Protocol: Document 01/19/21 09:44 CLB (Rec: 01/19/21 10:29 CLB [id number]) PT-Bed Mobility Assessment Sit to Supine Sit to Supine Standby Assistance PT-Transfer Assessment Sit to and From Stand Sit to and from Stand Standby Assistance,1 Person Assistance,Use of Upper Extremities Equipment Transfer Assistive Device Gait Belt,Front Wheeled Walker Orthotic/Prosthetic Devices or Brace: No Transfers Transfer Destination Chair Transfer Technique ambulated using FWW Transfer Ability Level of Assist Standby Assistance,1 Person Assistance,Use of Upper Extremities Comments Mobility Comments Pt in chair performing HS. Pt then ambulated in vieira to therapy stairs ~200ft w/FWW/ SBA with WC follow. Pt able to ambulate with step thru gait pattern with heel/toe, good stride length and foot clearance. Pt climbed stairs with SPC and CGA provided by . Pt sat in WC SBA and returned to room where he transferred from to bed in supine with SBA. Pt left in bed with all needs within reach. Gait Assessment Gait Gait Assistance Required: Standby Assistance,1 Person Assist Distance (Feet) 200 Able to Maintain Weight Bearing Status Yes During Gait Assistive Devices Assistive Device Gait Belt,Front Wheeled Walker Gait Deviations General Gait Pattern Antalgic Factors Limiting Gait Function Factors Limiting Gait Function Decreased Activity Tolerance, Decreased Sensation,Decreased Strength,Limited Range of Motion,Pain,Poor Balance Comments Gait Comments please see mobility comments Stair Climbing Assessment Evaluation Level of Assist On Stairs Contact Guard Assistance,1 Person Assistance Devices Stair Climbing Assistive Devices Straight Cane Technique/Endurance Stair Climbing Direction Ascend and Descend Stair Climbing Technique Step to Step Number of Steps Climbed 3 Stair Climbing Set # Repetitions (reps) 1 Comments Stair Climbing Comments Pt able to climb stairs with SPC and CGA provided by . M5 PT-IP Objective Assessments Start: 01/18/21 16:48 Freq: NEEDED Status: Active Protocol: Document 01/18/21 14:50 AB (Rec: 01/18/21 17:00 AB [id number]) Orientation Orientation/Cognition Level of Alertness Alert Orientation Name,Age,Birthday,Month,Date, Year,Day of Week,Place, Situation Language Function Ability No Deficits Noted Safety Awareness Understands Safety Issues Memory Description No Deficits Noted Gross Range of Motion Lower Extremity ROM Assessment Within Functional Limits Impairments L knee flexion: ~100 deg L knee extension: ~ 5-10 deg less to 0 Strength Lower Extremity Strength Assessment Left Impaired Hip 4+/5 Knee 4-/5 Sensation Assessment Sensation Gross Sensation Right LE Impaired Sensation Description Numbness Comments Sensation Comments also c/o bilateral buttocks numbness Muscle Tone Muscle Tone WNL Yes M6 PT-IP Treatment Start: 01/18/21 16:48 Freq: NEEDED Status: Active Protocol: Document 01/19/21 09:44 CLB (Rec: 01/19/21 10:29 CLB [id number]) Physical Therapy Treatment Exercises Exercises Heel Slides Education Education Provided Precautions,Weight Bearing Status,Post-Op Packet,Safety Other Treatments Other Treatment Performed reviewed HEP with pt M7 PT-IP Assessment and Plan Start: 01/18/21 16:48 Freq: NEEDED Status: Active Protocol: Document 01/19/21 09:44 CLB (Rec: 01/19/21 10:29 CLB [id number]) PT Summary Assessment and Plan Potential Rehabilitation Potential Good Status of Condition at Evaluation Evolving Summary Impairments Pain,ROM,Strength,Balance, Coordination,Sensation,Tone, Bed Mobility,Transfers,Gait, Activity Tolerance Progress Towards Goals Progressing Toward Goals Assessment Summary Pt is SBA for all mobility and CGA for stair climbing with assist. Pt able to increase gait distance to ~ 200ft and improve stability/ quality during gait andPt present for CG training and will be able to assist pt with all needs at home. Pt has OP PT scheduled for next week. Goals Bed Mobility Goal Independent Transfer Goal Independent,Front Wheeled Walker Gait Goal Independent,Front Wheel Walker Gait Distance 200 Other Goals up/down 3 steps without rails/ use of SPC/HUMAN RESOURCES GENERALIST CGA Days to Meet Goals 3 Frequency of Treatment Frequency Of Treatment Twice a Day Treatment Plan Physical Therapy Treatment Plan Bed Mobility Training,Transfer Training,Gait Training, Therapeutic Exercise,Balance Retraining,Post Op Education, Discharge Planning,Hot or Cold Pack,Neuromuscular Re-ed, Coordination Retraining,Manual Therapy Precautions Other Precautions LLE: WBAT Recommendations To Nursing Amount of Assist Needed 1 Person Assist Discharge Recommendations PT Discharge Recommendations Home with Assistance, Outpatient PT Transportation Needs at Discharge Private Vehicle
--- NOTE | 2021-01-19 12:44 | CM.DANOTE ---
Discharge Planning/Care Management DCP: assessment: case received, EMR reviewed. Discussed in Team Rounds. PT is a 70 year old male who admitted yesterday for a scheduled L TKA. Payer: Medicare and [facility] Radha Kinsey reported in Rounds that pt had done well with PT yesterday, caregiver training session was planned for today at 1000 and with a d/c home expected. A check in now shows pt was ok'd for d/c by ortho DALY Mcfadden and he has already left for home. No d/c concerns were identified by the care team members. CM Discharge Assessment Start: 01/19/21 12:43 Freq: Status: Active Protocol: Document 01/19/21 12:44 ITV (Rec: 01/19/21 12:44 ITV [id number]) Discharge Planning Assessment Advance Directives? No History Provided By Medical Record Prior Living Arrangements House Household Members spouse Pre-Anesthesia Assessment Start: 01/12/21 09:58 Freq: Status: Discharge Protocol: Document 01/12/21 09:58 CAB (Rec: 01/12/21 10:29 CAB [id number]) Pre-Anesthesia Assessment Preferred Name Mir Patient Information Reviewed Via Phone Assessment Assessment Completed With Patient Diagnostic Results BMP/CMP,CBC,EKG Comment Labs/EKG @ [facility], COVID screen @ [facility] 01/16/21 Primary Care Provider Josh Espinosa Seen Specialist in Last 12 Months Yes Specialist Seen General surgeon,Orthopedist Primary Language Hebrew Shopper Insights Manager Required No Height 177.8 cm Weight 83.007 kg Body Mass Index (BMI) 26.2 Hearing Ability Hard of Hearing Visual Assist Glasses Dentition Type Teeth, Natural Present,Teeth, Missing Barriers to Learning None Hx Anesthesia Reactions No Hx Family Anesthesia Reaction No Hx Malignant Hyperthermia No Hx Blood Transfusions No Hx Blood Transfusion Reaction No Anesthesia Review Requested No Scientific Systems Analyst No alcohol intake current alcohol intake frequency 0-2 drinks per day Smoking Status Former smoker Tobacco type cigarettes how long ago did patient quit smoking Quit approx 40 years ago Substance Use Type does not use Pain Present Pain Reported Musculoskeletal Symptoms Abnormal Gait,Back Pain, Difficulty Walking,Joint Pain History of Falling (Recent or History of No ) Patient is completely paralyzed or No completely immobile Prosthesis or Orthotic Device Cane,Crutches Mental Status Oriented to own ability Is patient on oxygen? No Does patient have WYNNE/SOB No Hx Sleep Apnea No CPAP/BIPAP use not prescribed Currently Taking a Beta Autumn No Can You Climb a Flight of Stairs Without Yes SOB Hx Chest Pain No Hx SOB No Hx Syncope or Dizziness No Anti-Coagulant Therapy No Has a Greenstone Polisher Operator No Cardiac Testing No Hx Pacemaker/ICD No Pacemaker Rep Required? No Cardiac Clearance Received Not Applicable Diet Type At Home Regular dysphagia No Urinary Catheter Present No Hx Urinary Self Catheterization No Diabetes No HgbA1C 5.0 Date 12/01/20 Hx Drug Resistant Organism No Presence of External or Internal Medical Yes: hernia mesh, tooth Devices implant Have you had any close contact with No someone diagnosed with COVID-19? Marital Status Lives With spouse Prior Living Arrangements House Number of Floors (Floors) One Floor Support System Spouse Patient Discharge Plan Description Return Home Comment Pt advised possible overnight length of stay per surgeon Additional comment Lives on [facility] Feels Safe in Current Environment Yes Been Physically Hurt or Threatened By a No Person in Current Environment Do you have thoughts of harming yourself None or others? Are you currently considering suicide? No Do you have a plan to hurt yourself or No Plan others? Do You Have Any Spiritual Beliefs That No May Affect Your HC Choices? Do You Have Any Cultural Practices That No May Affect Your HC Choices? Who Can We Speak to About Patient's Care Family, friends Identifying Code for Release of Patient Declines to issue Information Health Care Proxy/Next of Kin Tabitha () Health Care Proxy Emergency Contact Name Tabitha () Emergency Contact Advance Directives? No Power of Brush Loader And Handle Attacher No PAC Instructions Durable medical equipment, Medications to take/avoid, Nasal antibiotic,No ETOH/ petroleum product on skin DOS, NPO,Post-op transportation, Sensory aids,Sturdy shoes/ comfortable clothes,Do not bring valuables and remove jewelry
== END 2021-01-19 10:30 | disposition home or self-care (01) ==
LOC: OR 07:37 → AC 07:37
PROVIDERS: PCP Family Medicine; Referring Provider Orthopaedic Surgery Adult Reconstructive Orthopaedic Surgery; Visit Provider Orthopaedic Surgery Adult Reconstructive Orthopaedic Surgery
PROC: 0SRD0JZ Replacement of Left Knee Joint with Synthetic Substitute, Open Approach (ICD-10-PCS; CPT 27447; principal; 2021-01-18 08:45)
DX: M17.12 Unilateral primary osteoarthritis, left knee (principal); J45.20 Mild intermittent asthma, uncomplicated; E78.5 Hyperlipidemia, unspecified; L40.9 Psoriasis, unspecified
CPT/HCPCS: 27447; 36415; 73560; 85014; 85018; 97110; 97116; 97161; 97530; C1776; J0690; J1100; J1885; J2250; J2270; J2274; J2405; J2704; J3010

== ENCOUNTER → 2021-01-27 13:55 | Outpatient (CLI) | payer MEDICARE, BC, SELFPAY ==
[2021-01-18 13:29] VITALS: BMI 25.2
--- NOTE | 2021-01-27 | DI.US.S_ITS ---
PROCEDURE: US PERIPH VENOUS LOW EXTREM LT INDICATIONS: PAIN, EDEMA POST LEFT TKA TECHNIQUE: Real-time imaging, as well as color and pulse Doppler interrogation, were performed of the lower extremity deep veins from the inguinal ligament to the popliteal fossa. COMPARISON: None. FINDINGS: The common femoral, femoral and popliteal veins are normally compressible, and free of intraluminal thrombus. Color and pulse Doppler demonstrate normal phasic intraluminal flow. There is normal augmentation response to distal compression maneuver. IMPRESSION: No deep venous thrombosis identified within the left lower extremity. Dictated by: Agusto Bran Prashant Interpreted: Cuong Dawson MD on 01/27/2021 at 14:48 Transcribed by: NIKI on 01/27/2021 at 14:48 Approved by: Cuong Dawson M.D. on 01/27/2021 at 14:50
== END ==
PROVIDERS: PCP Family Medicine; Referring Provider Physician Assistant Medical; Visit Provider Physician Assistant Medical
DX: M79.605 Pain in left leg (principal); R60.0 Localized edema; Z96.652 Presence of left artificial knee joint
CPT/HCPCS: 93971

== ENCOUNTER → 2021-10-17 09:50 | Outpatient (CLI) | payer MEDICARE, BC, SELFPAY ==
[2021-01-18 13:29] VITALS: BMI 25.2
[2021-10-17 11:34] LABS: Add Manual Diff / Slide Review NO; Basophils Absolute Auto 0 /uL (0-100); Basophils Percent Auto 0.6 % (0-2); Eosinophils Absolute Auto 200 /uL (0-450); Eosinophils Percent Auto 2.2 % (2-4); Hematocrit 40.7 % (41-53); Hemoglobin 14.2 g/dL (13.5-17.5); Lymphocytes Absolute Auto 1700 /uL (1100-4500); Lymphocytes Percent Auto 24.7 % (25-40); Mean Corpuscular HGB Conc 34.8 % (30-36); Mean Corpuscular Hemoglobin 32.5 PG (26-34); Mean Corpuscular Volume 93.4 fL (80-100); Monocytes Absolute Auto 400 /uL (0-900); Monocytes Percent Auto 5.5 % (3-14); Neutrophils Absolute Auto 4700 /uL (1500-7000); Platelet Count 180 X10^3/uL (150-400); Red Blood Cell Count 4.36 X10^6/uL (4.5-5.9); Red Cell Distribution Width 12.9 % (11.6-14.8); White Blood Cell Count 7.1 X10^3/uL (4.5-11.0)
[2021-10-17 13:03] LABS: Alanine Aminotransferase 35 IU/L (<50); Albumin 4.1 g/dL (3.5-5.0); Albumin Globulin Ratio 1.4 (1.0-2.8); Alkaline Phosphatase 58 U/L (38-126); Aspartate Aminotransferase 37 IU/L (17-59); Blood Urea Nitrogen 20 mg/dL (9-20); Calcium 9.1 mg/dL (8.4-10.2); Carbon Dioxide 28 mmol/L (22-32); Chloride 103 mmol/L (98-107); Cholesterol 192 mg/dL (140-199); Estimated Glomerular Filt Rate > 60.0 mL/min (>60); Glucose 101 mg/dL (80-110); HDL Cholesterol 102 mg/dL (40-60); HEMOLYSIS < 15 (0-50); LDL Cholesterol Calculated 76 mg/dL (<100); Sodium 136 mmol/L (137-145); Total Protein 7.1 g/dL (6.3-8.2); Triglycerides 71 mg/dL (35-150)
[2021-10-17 13:31] LABS: Prostate Specific Antigen Scrn 0.228 ng/mL (0.1-4.0); TSH w/ Reflex to FT4 1.66 uIU/mL (0.47-4.68)
[2021-10-17 15:54] LABS: Hep C Virus Ab w/Reflex Quant NEGATIVE s/c (NEGATIVE)
== END ==
PROVIDERS: PCP Family Medicine; Referring Provider Family Medicine; Visit Provider Family Medicine
DX: E78.2 Mixed hyperlipidemia (principal); Z12.5 Encounter for screening for malignant neoplasm of prostate; L40.9 Psoriasis, unspecified; Z00.00 Encounter for general adult medical examination without abnormal findings; Z86.19 Personal history of other infectious and parasitic diseases
CPT/HCPCS: 36415; 80053; 80061; 84443; 85025; 86803; G0103

== ENCOUNTER → 2022-07-02 14:57 | Outpatient (CLI) | payer MEDICARE, BC, SELFPAY ==
[2021-01-18 13:29] VITALS: BMI 25.2
--- NOTE | 2022-07-02 14:59 | DI.MRI.S_ITS ---
PROCEDURE: MR LUMBAR SPINE WO CON INDICATIONS: Lower back pain TECHNIQUE: Noncontrast sagittal T1 spin echo and T2 fast echo, sagittal STIR, and T2 fast spin echo through the lumbar spine. In cases with scoliosis, additional coronal T2 fast spin echo may be performed. COMPARISON: None. FINDINGS: Image quality: This examination is limited by involuntary motion artifact. Alignment and Curvature: Mild dextroconvex scoliotic curvature is seen. Minimal retrolisthesis can be seen at L3-L4 and at L4-L5. Bone Marrow: Marrow is of normal overall signal. No acute vertebral body compression fractures. Spinal Cord: Conus medullaris terminates at the L1-L2 level. Visualized cord demonstrates normal signal and size. Paraspinous Soft Tissues: No paravertebral masses. T12-L1: No significant abnormality is seen. L1-L2: The disc height is well-preserved. Loss of disc signal is seen at this level. Mild generalized disc bulge is seen. There is a superimposed central disc protrusion. Bridging endplate osteophytes are seen. There is mild right-sided and moderate left-sided neural foraminal narrowing. Minimal central canal narrowing is seen. L2-L3: The disc height is well-preserved. Loss of disc signal is seen at this level. Moderate generalized disc bulge is seen. Mild facet joint hypertrophy is seen. There is moderate right-sided and no left-sided neural foraminal narrowing. Mild central canal narrowing is seen. L3-L4: At least moderate loss of disc height and disc signal can be seen. There is a likely subacute Schmorl's node seen involving the inferior endplate of L3. Moderate generalized disc bulge is seen. There is a superimposed central disc protrusion. Mild to moderate facet hypertrophy is seen. Moderate bilateral neural foraminal narrowing can be seen, left worse than right. Moderate central canal narrowing is seen. L4-L5: The disc height is well-preserved. Loss of disc signal is seen at this level. Moderate generalized disc bulge is seen. There is a superimposed central disc protrusion. Mild facet joint hypertrophy is seen. There is at least moderate bilateral neural foraminal narrowing seen. There is a degree of compression seen upon the exiting nerve roots. Mild central canal narrowing is seen. L5-S1: Moderate loss of disc height is seen. Loss of disc signal is seen. Moderate disc bulge is seen, which is eccentric to the right. There is a superimposed central disc protrusion. Moderate facet joint hypertrophy is seen. There is moderate to severe bilateral neural foraminal narrowing seen, with an associated a degree of compression seen upon the exiting nerve roots. Mild central canal narrowing is seen. S1-S2: A rudimentary, transitional disc can be seen. No significant neural foraminal or central canal narrowing can be seen. IMPRESSION: Multiple levels of lumbar spine degenerative change are seen, which are worst inferiorly. Dictated by: Nimesh Hernandez M.D. on 07/02/2022 at 16:23 Approved by: Nimesh Hernandez M.D. on 07/02/2022 at 16:27
== END ==
PROVIDERS: PCP Family Medicine; Referring Provider Family Medicine; Visit Provider Family Medicine
DX: M47.817 Spondylosis without myelopathy or radiculopathy, lumbosacral region (principal); M47.816 Spondylosis without myelopathy or radiculopathy, lumbar region; M54.32 Sciatica, left side; M54.50 Low back pain, unspecified
CPT/HCPCS: 72148

== ENCOUNTER → 2022-07-04 09:52 | Outpatient (CLI) | payer MEDICARE, BC, SELFPAY ==
[2021-01-18 13:29] VITALS: BMI 25.2
--- NOTE | 2022-07-04 09:54 | DI.RAD.S_ITS ---
PROCEDURE: XR LUMBAR SPINE MIN 4V INDICATIONS: Lumbar spondylosis TECHNIQUE: 5 views of the lumbar spine were acquired, including bilateral oblique views. COMPARISON: None. FINDINGS: Bones: 5 nonrib-bearing vertebrae are present. Minor rightward curvature of the lumbar spine with the apex at the L2-3 level. Asymmetric left-sided disc height loss at L3-4. There are contralateral prominent left-sided endplate osteophytes from L2 through L4. Trace retrolisthesis L4 on five. Moderate facet sclerosis L5 four five and L5-S1. Moderate multilevel disc height loss. No vertebral body compression fractures. No suspicious bony lesions. Soft tissues: Overlying bowel gas pattern is normal. No suspicious soft tissue calcifications. Oblique images: No pars defects. IMPRESSION: Multilevel spondylosis Dictated by: Ashly Tirado M.D. on 07/04/2022 at 11:24 Approved by: Ashly Tirado M.D. on 07/04/2022 at 11:29
== END ==
PROVIDERS: PCP Family Medicine; Referring Provider Anesthesiology; Visit Provider Anesthesiology
DX: M47.816 Spondylosis without myelopathy or radiculopathy, lumbar region (principal); M54.50 Low back pain, unspecified; G89.29 Other chronic pain
CPT/HCPCS: 72110; 99214

== ENCOUNTER 2022-07-12 13:33 | Outpatient (CLI) | payer MEDICARE, BC, SELFPAY ==
[2021-01-18 13:29] VITALS: BMI 25.2
[2022-07-12] VITALS (9 sets, daily range): BP systolic 111–134; BP diastolic 62–74; PULSE 52–60; RESP 13–20; TEMP 36.7; O2SAT 97–100
--- NOTE | 2022-07-12 13:34 | DI.RAD.S_ITS ---
PROCEDURE: PAIN L/S TRANSFORAM INJECT JAZMYN COMPARISON: [facility], CR, XR LUMBAR SPINE MIN 4V, 07/04/2022, 9:55. [facility], MR, MR LUMBAR SPINE WO CON, 07/02/2022, 15:12. INDICATIONS: SACROILIAC DYSFUNCTION FINDINGS: Fluoroscopic spot filming was performed to verify placement of spinal needles on both sides at the S1 level, as labeled on the films. Appropriate location of the needle tips was confirmed by injection of iodinated contrast. IMPRESSION: Intraprocedural examination demonstrating appropriate positions of the needles. Dictated by: Nimesh Hernandez M.D. on 07/12/2022 at 17:41 Approved by: Nimesh Hernandez M.D. on 07/12/2022 at 17:42
--- NOTE | 2022-07-12 14:07 | P.PCN_ITS ---
Date/Time/Diagnoses Date of procedure: 07/12/22 Time of procedure: 14:07 Pre-procedure diagnosis: Lumbar radiculopathy Post-procedure diagnosis: same Procedure Notes Procedure: Bilateral S1 Transforaminal Epidural Steroid Injections Indications: Jose Alberto is referred by self for treatment of lumbar radiculopathy with bilateral leg pain. Physician: Bradley Islas Total Fluoroscopy time (seconds): 37 Total sedation minutes: 20 Procedure in detail & Post-procedure care: Bilateral S1 Transforaminal Epidural Steroid Injection Chief Complaint: Bilateral leg pain Interval changes in history/medications/system review: Unchanged since last visit. Allergies: Nkda Anticoagulants: none Focused Examination: Ax3 Mood and affect are normal Vital Signs: VSS Consent: Following review of allergies and potential side effects/complications, including, but not necessarily limited to, infection, allergic reaction, local tissue breakdown, stroke, temporary or permanent nerve injury, paralysis, and possible , the patient indicated that the patient understood and agreed to proceed.? An informed consent document was signed by the patient, witnessed by a nurse, and placed in the patient's chart.? Additionally, other treatment options including medications, modalities, and physical therapy were reviewed with the patient. All questions were answered. Site was then marked. Position: Prone Anesthesia: Local with Midazolam 2 mg Monitoring: NIBP, Pulse oximetry, 3 lead EKG Needle used: 22G? 3.5 inch spinal needle Contrast: Isovue-M 300 Injectate: 10 mg Dexamethasone followed by 0.25% Ropivacaine 2ml was injected at each site Technique: The skin was prepped with chloraprep (chlorhexidine and alcohol) and draped in a sterile fashion. Time out was then performed as per protocol. Needle entry site was then infiltrated with 5mL of lidocaine 1%. Under fluoroscopic guidance, the spinal needles were guided into the right?S1 foramen. There were no paresthesias reported by the patient during needle placement. In AP view and under real-time fluoroscopy 1ml contrast was slowly injected to each site, and epidural spread was observed without evidence for intravascular nor intrathecal uptake. On AP view, contrast spread was seen craniocaudally. The above injectate was then administered at each level and the needle was subsequently withdrawn. The procedure was then repeated for the left S1 TFESI using the same technique. Contrast volume used was 4mL total, 2mL per site. EBL: less than 1 ml Complications: None Post Procedure: Patient was taken to the recovery and monitored. The patient was provided a Pain Log to continue to record the patient's response to the target- specific procedure prior to the patient's follow-up visit with the referring physician. Patient was stable upon discharge. Detailed post procedure instructions were provided. Patient was asked to call in the event of worsening pain, fever, weakness, numbness or bladder or bowel incontinence.
[2022-07-12] MEDS: MIDAZOLAM 2 MG/2 ML VIAL IV (14:12)
[2022-07-12] MEDS: IOPAMIDOL 15 ML VIAL 3 ML INJ (14:16)
[2022-07-12] MEDS: DEXAMETHASONE 10 MG/ML VIAL 20 MG INJ (14:16)
[2022-07-12] MEDS: BUPIVACAINE 0.25% (PF) VIAL 5 ML SUBCUT (14:18)
== END 2022-07-12 14:52 | disposition home or self-care (01) ==
LOC: RAD 13:34
PROVIDERS: PCP Family Medicine; Referring Provider Anesthesiology; Visit Provider Anesthesiology
DX: M54.17 Radiculopathy, lumbosacral region (principal)
CPT/HCPCS: 64483; 99152; J1100; J2250; J3490

== ENCOUNTER → 2022-12-20 11:12 | Outpatient (CLI) | payer MEDICARE, BC, SELFPAY ==
[2021-01-18 13:29] VITALS: BMI 25.2
[2022-12-20 11:56] LABS: Add Manual Diff / Slide Review NO; Basophils Absolute Auto 100 /uL (0-100); Basophils Percent Auto 0.5 % (0-2); Eosinophils Absolute Auto 100 /uL (0-450); Hematocrit 38.9 % (41-53); Hemoglobin 13.7 g/dL (13.5-17.5); Lymphocytes Absolute Auto 2200 /uL (1100-4500); Lymphocytes Percent Auto 21.3 % (25-40); Mean Corpuscular HGB Conc 35.2 % (30-36); Mean Corpuscular Hemoglobin 32.5 PG (26-34); Mean Corpuscular Volume 92.4 fL (80-100); Monocytes Absolute Auto 700 /uL (0-900); Monocytes Percent Auto 6.6 % (3-14); Neutrophils Absolute Auto 7400 /uL (1500-7000); Neutrophils Percent Auto 70.6 % (50-75); Platelet Count 212 X10^3/uL (150-400); Red Blood Cell Count 4.21 X10^6/uL (4.5-5.9); Red Cell Distribution Width 12.7 % (11.6-14.8); White Blood Cell Count 10.5 X10^3/uL (4.5-11.0)
[2022-12-20 12:17] LABS: Alanine Aminotransferase 29 IU/L (<50); Albumin Globulin Ratio 1.2 (1.0-2.8); Alkaline Phosphatase 62 U/L (38-126); Aspartate Aminotransferase 28 IU/L (17-59); Bilirubin Total 1.4 mg/dL (0.2-1.3); Blood Urea Nitrogen 20 mg/dL (9-20); Calcium 8.6 mg/dL (8.4-10.2); Carbon Dioxide 28 mmol/L (22-32); Chloride 102 mmol/L (98-107); Estimated Glomerular Filt Rate > 60 mL/min (>60); Globulin 3.3 g/dL (1.7-4.1); Glucose 104 mg/dL (80-110); HEMOLYSIS < 15 (0-50); Potassium 3.8 mmol/L (3.4-5.1); Sodium 136 mmol/L (137-145); Total Protein 7.3 g/dL (6.3-8.2)
[2022-12-20 12:50] LABS: Hepatitis B Surface Antigen NEGATIVE s/c (NEGATIVE)
[2022-12-20 13:43] LABS: Hep C Virus Ab w/Reflex Quant NEGATIVE s/c (NEGATIVE)
[2022-12-21 08:31] LABS: Hepatitis B Surf Ab Qualitativ Reactive (.)
[2022-12-22 16:36] LABS: QuantiFERON Mitogen Value >10.00 IU/mL (.); QuantiFERON Nil Value 0.04 IU/mL (.); QuantiFERON TB Gold Plus Negative (Negative); QuantiFERON TB1 Ag Value 0.06 IU/mL (.); QuantiFERON TB2 Ag Value 0.05 IU/mL (.)
== END ==
PROVIDERS: PCP Family Medicine; Referring Provider Physician Assistant; Visit Provider Physician Assistant
DX: L40.0 Psoriasis vulgaris (principal)
CPT/HCPCS: 36415; 80053; 85025; 86480; 86706; 86803; 87340

== ENCOUNTER → 2023-01-16 09:07 | Outpatient (CLI) | payer MEDICARE, BC, SELFPAY ==
[2021-01-18 13:29] VITALS: BMI 25.2
[2023-01-16 11:53] LABS: Cholesterol 187 mg/dL (140-199); HDL Cholesterol 102 mg/dL (40-60); LDL Cholesterol Calculated 70 mg/dL (<100); Triglycerides 73 mg/dL (35-150)
[2023-01-16 12:15] LABS: Prostate Specific Antigen Scrn 0.307 ng/mL (0.1-4.0)
== END ==
PROVIDERS: PCP Family Medicine; Referring Provider Family Medicine; Visit Provider Family Medicine
DX: E78.2 Mixed hyperlipidemia (principal); Z12.5 Encounter for screening for malignant neoplasm of prostate
CPT/HCPCS: 36415; 80061; G0103

== ENCOUNTER 2023-05-08 09:22 | Outpatient (CLI) | payer MEDICARE, OTHER, SELFPAY ==
[2021-01-18 13:29] VITALS: BMI 25.2
[2023-05-08] VITALS (8 sets, daily range): BP systolic 128–164; BP diastolic 67–80; PULSE 43–58; RESP 13–20; TEMP 36.2; O2SAT 97–100
--- NOTE | 2023-05-08 09:23 | DI.RAD.S_ITS ---
PROCEDURE: PAIN L/S TRANSFORAM INJECT JAZMYN COMPARISON: [facility], , PAIN L/S TRANSFORAM INJECT JAZMYN, 07/12/2022, 15:16. INDICATIONS: SPONDYLOSIS Fluoroscopic spot filming was performed to verify placement of spinal needles on both sides at the S1 level, as labeled on the films. Appropriate location of the needle tips was confirmed by injection of iodinated contrast. IMPRESSION: Intraprocedural examination demonstrating appropriate positions of the needles. Dictated by: Nimesh Hernandez M.D. on 05/08/2023 at 14:49 Approved by: Nimesh Hernandez M.D. on 05/08/2023 at 14:50
[2023-05-08] MEDS: MIDAZOLAM 2 MG/2 ML VIAL IV (10:14)
[2023-05-08] MEDS: iopamidoL 15 ML VIAL 3 ML INJ (10:16)
[2023-05-08] MEDS: DEXAMETHASONE 10 MG/ML VIAL 20 MG INJ (10:16)
--- NOTE | 2023-05-08 12:36 | P.PCN_ITS ---
Date/Time/Diagnoses Date of procedure: 05/08/23 Time of procedure: 10:00 Procedure Notes Physician: Bradley Islas Total Fluoroscopy time (seconds): 47 Total sedation minutes: 16 Procedure in detail & Post-procedure care: Bilateral S1 Transforaminal Epidural Steroid Injection Indications: Jose Alberto is presenting for treatment of lumbosacral radiculopathy with low back and leg pain. Preoperative diagnosis: Bilateral lumbosacral radiculopathy Postoperative diagnosis: Same Focused Examination: Ax3 Mood and affect are normal Vital Signs: VSS ASA: 2 Consent: Following review of allergies and potential side effects/complications, including, but not necessarily limited to, infection, allergic reaction, local tissue breakdown, stroke, temporary or permanent nerve injury, paralysis, and possible , the patient indicated that they understood and agreed to proceed.? An informed consent document was signed by the patient, witnessed by a nurse and placed in the patient's chart.? Additionally, other treatment options including medications and physical therapy were reviewed with the patient. All questions were answered. Site was then marked. Anesthesia: After review of previous anesthetic history and IV conscious sedation, the patient was deemed safe to proceed with today's procedure with IV conscious sedation. IV sedation was accomplished with midazolam 2 mg administered by the RN after order by Dr. Islas. Sedation was titrated to patient comfort during the course of the procedure. Patient remained responsive to all verbal commands. Position: Prone Monitoring: NIBP, Pulse oximetry, 3 lead EKG Needle used: 22G, 3.5 inch spinal needle Contrast: Isovue 300M Injectate: 7.5 mg Dexamethasone mixed with 1% lidocaine 1 ml and Normal Saline 1 ml per site Technique: The skin was prepped with chloraprep and draped in a sterile fashion. Time out was performed as per protocol. Oxygen applied via NC. Skin and subcutaneous structures of the needle entry site were infiltrated with 3mL of lidocaine 1%. Under fluoroscopic guidance, using an ipsilateral oblique view,?a 22 gauge 3.5 inch needle was advanced to the superolateral border of the right S1 foramen.? The needle was advanced to the superolateral aspect of the neural foramen under lateral view.?AP views were rechecked. No paresthesias noted by the patient during needle placement. In AP view and utilizing real-time digital subtraction fluoroscopy, 2 ml contrast was slowly injected. Epidural spread was observed without evidence for intravascular nor intrathecal uptake. The above injectate was then administered, and the needle was subsequently withdrawn. Skin and subcutaneous structures of the needle entry site were infiltrated with 3mL of lidocaine 1%. Under fluoroscopic guidance, using an ipsilateral oblique view,?a 22 gauge 3.5 inch needle was advanced to the superolateral border of the left S1 foramen.? The needle was advanced to the superolateral aspect of the neural foramen under lateral view.?AP views were rechecked. No paresthesias noted by the patient during needle placement. In AP view and utilizing real-time digital subtraction fluoroscopy, 2 ml contrast was slowly injected. Epidural spread was observed without evidence for intravascular nor intrathecal uptake. The above injectate was then administered, and the needle was subsequently withdrawn. Band-Aids applied to injection sites. EBL: less than 1 ml Complications: None Post Procedure: Patient was taken to the recovery and monitored. The patient was provided a Pain Log to continue to record the patient's response to the target- specific procedure prior to the patient's follow-up visit with the referring physician. Patient was stable upon discharge. Detailed post procedure instructions were provided. Patient was asked to call in the event of worsening pain, fever, weakness, numbness or bladder or bowel incontinence.
== END 2023-05-08 10:51 | disposition home or self-care (01) ==
LOC: RAD 09:23
PROVIDERS: PCP Family Medicine; Referring Provider Anesthesiology; Visit Provider Anesthesiology
DX: M54.17 Radiculopathy, lumbosacral region (principal)
CPT/HCPCS: 64483; 99152; J1100; J2250

== ENCOUNTER → 2024-01-20 14:59 | Outpatient (CLI) | payer MEDICARE, OTHER, SELFPAY ==
[2021-01-18 13:29] VITALS: BMI 25.2
[2024-01-20 15:25] LABS: Add Manual Diff / Slide Review NO; Basophils Absolute Auto 0 /uL (0-100); Basophils Percent Auto 0.8 % (0-2); Eosinophils Absolute Auto 100 /uL (0-450); Eosinophils Percent Auto 2.4 % (2-4); Hematocrit 38.6 % (41-53); Hemoglobin 13.6 g/dL (13.5-17.5); Lymphocytes Absolute Auto 2400 /uL (1100-4500); Lymphocytes Percent Auto 38.4 % (25-40); Mean Corpuscular HGB Conc 35.2 % (30-36); Mean Corpuscular Hemoglobin 32.5 PG (26-34); Mean Corpuscular Volume 92.2 fL (80-100); Monocytes Absolute Auto 400 /uL (0-900); Monocytes Percent Auto 6.3 % (3-14); Neutrophils Absolute Auto 3200 /uL (1500-7000); Neutrophils Percent Auto 52.1 % (50-75); Platelet Count 201 X10^3/uL (150-400); Red Blood Cell Count 4.19 X10^6/uL (4.5-5.9); Red Cell Distribution Width 12.7 % (11.6-14.8); White Blood Cell Count 6.2 X10^3/uL (4.5-11.0)
[2024-01-20 15:47] LABS: Alanine Aminotransferase 37 IU/L (<50); Albumin Globulin Ratio 1.2 (1.0-2.8); Alkaline Phosphatase 66 U/L (38-126); Aspartate Aminotransferase 40 IU/L (17-59); BUN Creatinine Ratio 25.9 (6-22); Bilirubin Total 0.9 mg/dL (0.2-1.3); Blood Urea Nitrogen 21 mg/dL (9-20); Calcium 8.7 mg/dL (8.4-10.2); Carbon Dioxide 27 mmol/L (22-32); Chloride 107 mmol/L (98-107); Cholesterol 191 mg/dL (140-199); Estimated Glomerular Filt Rate > 60 mL/min (>60); Globulin 3.3 g/dL (1.7-4.1); Glucose 104 mg/dL (80-110); HDL Cholesterol 92 mg/dL (40-60); HEMOLYSIS < 15 (0-50); LDL Cholesterol Calculated 84 mg/dL (<100); Sodium 136 mmol/L (137-145); Total Protein 7.3 g/dL (6.3-8.2); Triglycerides 77 mg/dL (35-150)
[2024-01-20 16:17] LABS: Prostate Specific Antigen Scrn 0.315 ng/mL (0.1-4.0)
[2024-01-20 16:18] LABS: TSH w/ Reflex to FT4 1.22 uIU/mL (0.47-4.68)
[2024-01-22 03:10] LABS: Apolipoprotein B 71 mg/dL (<90)
== END ==
PROVIDERS: PCP Family Medicine; Referring Provider Family Medicine; Visit Provider Family Medicine
DX: Z00.00 Encounter for general adult medical examination without abnormal findings (principal); J45.909 Unspecified asthma, uncomplicated; E78.5 Hyperlipidemia, unspecified; Z12.5 Encounter for screening for malignant neoplasm of prostate; M54.17 Radiculopathy, lumbosacral region; L40.9 Psoriasis, unspecified; G56.03 Carpal tunnel syndrome, bilateral upper limbs
CPT/HCPCS: 36415; 80053; 80061; 82172; 84443; 85025; 86900; 86901; G0103

== ENCOUNTER 2024-06-16 12:51 | Outpatient (CLI) | payer MEDICARE, OTHER, SELFPAY ==
[2021-01-18 13:29] VITALS: BMI 25.2
[2024-06-16] VITALS (8 sets, daily range): BP systolic 122–151; BP diastolic 68–75; PULSE 47–57; RESP 10–17; TEMP 36.6; O2SAT 96–100
--- NOTE | 2024-06-16 12:53 | DI.RAD.S_ITS ---
PROCEDURE: PAIN L/S TRANSFORAM INJECT JAZMYN COMPARISON: [facility], XA, PAIN L/S TRANSFORAM INJECT JAZMYN, 05/08/2023, 10:13. INDICATIONS: Bilateral L5-S1 transforaminal FELICIANO Findings and impression: Fluoroscopic images were obtained for bilateral L5-S1 transforaminal epidural steroid injection. Contrast was used to confirm needle positioning. Please see operative note for full details. Background degenerative changes. Dictated by: Harsh Wyatt M.D. on 06/16/2024 at 16:13 Approved by: Harsh Wyatt M.D. on 06/16/2024 at 16:13
[2024-06-16] MEDS: MIDAZOLAM 2 MG/2 ML VIAL IV (14:00)
[2024-06-16] MEDS: DEXAMETHASONE 10 MG/ML VIAL 20 MG INJ (14:05)
[2024-06-16] MEDS: BETAMETHASONE 30 MG/5 ML MDV 12 MG INJ (14:05)
[2024-06-16] MEDS: iopamidoL 15 ML VIAL 3 ML INJ (14:06)
[2024-06-16] MEDS: BUPIVACAINE 0.25% (PF) VIAL 2 ML INJ (14:06)
--- NOTE | 2024-06-16 14:24 | PM.PROC.IR.1 ---
Date/Time/Diagnoses Date of procedure: 06/16/24 Time of procedure: 14:24 Pre-procedure diagnosis: 1. FORAMINAL STENOSIS WITH LE SYMPTOMS Post-procedure diagnosis: same Procedure Notes Procedure: 1. FLUOROSCOPICALLY GUIDED CONTRAST CONTROLLED TRANSFORAMINAL EPIDURAL STEROID INJECTION - BILATERAL L5/S1 TFESI Indications: Jose Alberto is referred by Dr. Espinosa for treatment of Foraminal Stenosis with bilateral LE Symptoms Physician: Jose Alberto Butts Total Fluoroscopy time (seconds): 24 Total sedation minutes: 20 Complications: none Procedure in detail & Post-procedure care: FINDINGS Foraminal Nerve Root Compression secondary to disc disease and facet hypertrophy DESCRIPTION OF PROCEDURE Following review of allergy and review of potential side effects and complications, including, but not necessarily limited to, infection, allergic reaction, local tissue breakdown, stroke, temporary or permanent nerve injury, paralysis, and possible , the patient indicated that the patient understood and agreed to proceed. An informed consent document was signed by the patient, witnessed by a nurse, and placed in the patient's chart. Additionally, other treatment options including medications, modalities, and physical therapy were reviewed with the patient. After review of previous anaesthesic history and IV conscious sedation the patient was deemed safe to proceed with today?s procedure with IV conscious sedation as ASA class II designation. Safety time-out was performed to confirm patient ID, procedure to be performed and site of procedure. IV sedation was accomplished with a combination of 2mg of Versed was administered by the RN after DO order, titrated to patient comfort during the course of the procedure while the patient remained responsive to all verbal commands In the prone position following sterile prep and drape of the lumbar region, the right L5/S1 posterior neuroforamen was identified fluoroscopically. The skin was anesthetized via a 25-gauge 1.5-inch needle with 1% lidocaine solution. At this point, a 25-gauge 3.5-inch spinal needle was atraumatically introduced and advanced under fluoroscopic guidance through the posterior right L5/S1 neuroforamen to approximately the anterior aspect of the canal. Depth was confirmed on lateral view. Following negative aspiration, injection of approximately 1.5cc of Isovue 200 under live fluoroscopy in the AP view confirmed excellent flow along the nerve root, into the epidural space without vascular or intrathecal uptake observed Radiological data, including multiple fluoroscopic views of the lumbosacral spine, reveal a spinal needle at the right L5/S1 posterior neuroforamen. Subsequent views show flow of contrast material flowing superiorly and inferiorly along the nerve root confirming epidural flow. Subsequently, a test dose of 1.5cc of 1% lidocaine solution was administered and patient was observed for two minutes for signs or symptoms of complications, including abdominal pain, shortness of breath, bilateral upper or lower extremity weakness, nausea and vomiting, prior to steroid injection. At this point, a total of 2cc or 10mg of dexamethasone and 6mg betamethasone was injected without incident. Attention was then refocused to the left L5/S1 level where the identical procedure was replicated. The procedure tolerated the procedure well without signs or symptoms of complications prior to transfer to the recovery area continued monitoring without incident. The patient was then transferred to the recovery area where they were observed for an appropriate time after the injection. The patient reported a VAS score of 7 prior to the procedure and a post-procedure VAS of 0. POST OP INSTRUCTIONS The patient was provided a Pain Log to continue to record their response to the target-specific procedure prior to follow-up visit with their referring physician. Additionally, specific post-injection care instructions and a contact number to our office were provided if concerns arise regarding possible complications associated with the procedure are suspected.
== END 2024-06-16 14:40 | disposition home or self-care (01) ==
PROVIDERS: PCP Family Medicine; Referring Provider Physical Medicine & Rehabilitation; Visit Provider Physical Medicine & Rehabilitation
DX: M48.07 Spinal stenosis, lumbosacral region (principal); M51.17 Intervertebral disc disorders with radiculopathy, lumbosacral region; M47.27 Other spondylosis with radiculopathy, lumbosacral region
CPT/HCPCS: 64483; 99152; J0702; J1100; J2250; J3490

== ENCOUNTER → 2025-03-09 11:28 | Outpatient (CLI) | payer MEDICARE, OTHER, SELFPAY ==
[2025-02-18 12:05] VITALS: BMI 25.2
[2025-03-09 12:47] LABS: Add Manual Diff / Slide Review NO; Hematocrit 38.7 % (41-53); Hemoglobin 13.8 g/dL (13.5-17.5); Lymphocytes Absolute Auto 2200 /uL (1100-4500); Mean Corpuscular HGB Conc 35.6 % (30-36); Mean Corpuscular Hemoglobin 33.1 PG (26-34); Mean Corpuscular Volume 93.0 fL (80-100); Platelet Count 182 X10^3/uL (150-400)
[2025-03-09 13:30] LABS: Alanine Aminotransferase 38 IU/L (<50); Albumin 4.1 g/dL (3.5-5.0); Albumin Globulin Ratio 1.5 (1.0-2.8); Alkaline Phosphatase 57 U/L (38-126); Blood Urea Nitrogen 18 mg/dL (9-20); Calcium 9.1 mg/dL (8.4-10.2); Carbon Dioxide 26 mmol/L (22-32); Chloride 104 mmol/L (98-107); Cholesterol 170 mg/dL (140-199); Estimated Glomerular Filt Rate > 60 mL/min (>60); Globulin 2.8 g/dL (1.7-4.1); Glucose 111 mg/dL (70-99); HDL Cholesterol 101 mg/dL (40-60); HEMOLYSIS < 15 (0-50); Potassium 4.0 mmol/L (3.4-5.1); Sodium 135 mmol/L (137-145); Total Protein 6.9 g/dL (6.3-8.2); Triglycerides 61 mg/dL (35-150)
[2025-03-09 13:56] LABS: TSH w/ Reflex to FT4 1.30 uIU/mL (0.47-4.68)
== END ==
PROVIDERS: PCP Family Medicine; Referring Provider Family Medicine; Visit Provider Family Medicine
DX: J45.20 Mild intermittent asthma, uncomplicated (principal); E78.2 Mixed hyperlipidemia; Z12.5 Encounter for screening for malignant neoplasm of prostate; M54.17 Radiculopathy, lumbosacral region; L40.9 Psoriasis, unspecified
CPT/HCPCS: 36415; 80053; 80061; 84443; 85025; G0103

== ENCOUNTER → 2025-03-12 07:50 | Outpatient (CLI) | payer MEDICARE, OTHER, SELFPAY ==
[2025-02-18 12:05] VITALS: BMI 25.2
--- NOTE | 2025-03-12 07:51 | DI.ECHO.S_ITS ---
[facility] +---------+ [facility] : : [id number] : [place] : : [id number] : : Phone: [phone] Echocardiogram Report + + :Name: LONNIE BULLOCK Study Date: 03/12/2025 Height: 70 in : :Hospital ReadingLocation: Weight: 170 lb : : Gender: Male BSA: 1.9 m2 : :: 1950 Age: 74 yrs BP: 151/75 mmHg: :Reason For Study: MURMUR : :Ordering Physician: EDEN, : :HEAVENLY Performed By: Channing Dowling : :Referring: HEAVENLY HARMON : + + Interpretation Summary The left ventricle is mildly dilated. Left ventricular systolic function is mildly reduced. The ejection fraction is estimated to be 45-50%. There are no focal wall motion abnormalities. Diastolic parameters suggest probable normal left ventricular diastolic function and normal filling pressures. The right ventricle is normal in size and function. The right ventricular systolic pressure is estimated to be at least 31 mmHg based on an estimated right atrial pressure of 8 mm Hg. The left atrium is severely dilated. The right atrium is moderately dilated. There is mild mitral regurgitation. There is mild aortic stenosis. There is mild aortic regurgitation. The aortic root is normal size. Procedure: A two-dimensional transthoracic echocardiogram with color flow and Doppler was performed. The study quality was technically good. There is no prior echocardiogram noted for this patient. The patient was in normal sinus rhythm during the exam. Left Ventricle: The left ventricle is mildly dilated. There is normal left ventricular wall thickness. There is no ventricular septal defect visualized. Left ventricular systolic function is mildly reduced. The ejection fraction is estimated to be 45-50%. There are no focal wall motion abnormalities. Diastolic parameters suggest probable normal left ventricular diastolic function and normal filling pressures. Right Ventricle: The right ventricle is normal in size and function. Atria: The left atrium is severely dilated. The right atrium is moderately dilated. There is no Doppler evidence for an interatrial shunt. Mitral Valve: The mitral valve leaflets appear normal. There is no evidence of stenosis, fluttering, or prolapse. There is mild mitral regurgitation. Aortic Valve: The aortic valve is trileaflet. The aortic valve is mildly calcified. There is mild aortic stenosis. The peak aortic velocity is 2.44 m/sec. The aortic valve mean gradient is 12.8 mmHg. The calculated aortic valve area is 1.7 cm2. There is mild aortic regurgitation. Tricuspid Valve: The tricuspid valve leaflets are thin and pliable. There is mild tricuspid regurgitation. The right ventricular systolic pressure is estimated to be at least 31 mmHg based on an estimated right atrial pressure of 8 mm Hg. Pulmonic Valve: The pulmonic valve is not well seen, but is grossly normal. There is trace pulmonic regurgitation. Great Vessels: The aortic root is normal size. The dimensions of the ascending aorta are normal. The pulmonary artery is normal size. The IVC is dilated (diameter is greater than 2.1 cm) yet it collapses greater than 50% with a sniff. This suggests a right atrial pressure of 8 mm Hg. Pericardium/ Pleura There is no pericardial effusion. There is no pleural effusion. MMode/2D Measurements & Calculations LVIDd: 6.1 cm LVOT diam: 2.3 cm LVIDs: 4.4 cm Ao root diam: 3.6 cm FS: 26.8 % asc Aorta Diam: 3.2 cm EPSS: 0.83 cm IVSd: 0.86 cm LVPWd: 0.99 cm LV quinteros. diameter/BSA (cm/m^2): 3.1 LV sys. diameter/BSA (cm/m^2): 2.3 LA A2 area: 29.3 cm2 RA long axis: 6.1 cm LA A4 area: 27.0 cm2 RA area: 23.8 cm2 LA length (vol): 6.2 cm RA vol: 78.9 ml LA vol: 108.9 ml RA : 40.5 ml/m2 LA vol index: 55.9 ml/m2 IVC diam: 2.2 cm RVD1 (basal): 3.7 cm RVD2 (mid): 2.5 cm TAPSE: 3.2 cm Doppler Measurements & Calculations Ao V2 max: 244.3 cm/sec LVOT Max Abdelrahman: 92.3 cm/sec Ao V2 mean: 173.1 cm/sec LV V1 max P.4 mmHg Ao max P.9 mmHg LV V1 VTI: 27.2 cm Ao mean P.8 mmHg TAVON(I,D): 1.7 cm2 Ao V2 VTI: 66.2 cm TAVON(V,D): 1.6 cm2 sev ratio: 0.41 TAVON indexed to BSA (cm^2/m^2): 0.89 MV E max abdelrahman: 67.4 cm/sec TR max abdelrahman: 240.3 cm/sec MV A max abdelrahman: 43.5 cm/sec TR max P.1 mmHg MV E/A: 1.6 PA V2 max: 102.5 cm/sec Med Peak E' Abdelrahman: 7.9 cm/sec PA V2 mean: 78.0 cm/sec E/E' med: 8.5 PA mean P.6 mmHg Lat Peak E' Abdelrahman: 6.6 cm/sec PA pr(Accel): 61.0 mmHg E/E' lat: 10.2 E/e' average: 9.3 MV dec time: 0.18 sec SV(LVOT): 115.1 ml Reading Physician:09:54 AM
== END ==
PROVIDERS: PCP Family Medicine; Referring Provider Family Medicine; Visit Provider Family Medicine
DX: I08.3 Combined rheumatic disorders of mitral, aortic and tricuspid valves (principal); R01.1 Cardiac murmur, unspecified
CPT/HCPCS: 93306